=== PATIENT | female | born 1970 ===

== ENCOUNTER 2018-03-14 00:15 | Emergency (ER) | payer SELFPAY ==
[2018-03-14 00:24] VITALS: BP 159/77; PULSE 81; TEMP 98.5; O2SAT 99
[2018-03-14] MEDS ORDERED: Tetracaine 0.5% Ophth (OR ONLY) ONE (00:38)
[2018-03-14] MEDS ORDERED: Fluorescein 1 mg Ophthalmic Strip ONE (00:38)
[2018-03-14] MEDS ORDERED: Fluorescein 1 mg Ophthalmic Strip OD ONE (00:47)
--- NOTE | 2018-03-14 00:50 | C.PDOC ---
History Of Present Illness 47 year old female presents to the ED complaining of foreign body sensation in her right eye. 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 She tried washing it out but the discomfort persists. Denies changes in vision, discharge, or headache. She denies any other trauma/ injuries. Time Seen by Provider: 03/14/18 00:40 Chief Complaint (Nursing): Eye Problem History Per: Patient History/Exam Limitations: no limitations Onset/Duration Of Symptoms: Mins Current Symptoms Are (Timing): Still Present Associated Symptoms: FB Sensation Past Medical History Reviewed: Historical Data, Nursing Documentation, Vital Signs Vital Signs: Last Vital Signs Temp 98.5 F 03/14/18 00:22 Pulse 81 03/14/18 00:22 Resp 20 03/14/18 00:55 BP 159/77 H 03/14/18 00:22 Pulse Ox 99 03/14/18 02:14 - Medical History PMH: No Chronic Diseases Surgical History: Cholecystectomy Family History: States: No Known Family Hx - Social History Hx Alcohol Use: Yes Hx Substance Use: No Review Of Systems Except As Marked, All Systems Reviewed And Found Negative. Eyes: Positive for: Other (Foreign body sensation in right eye) Physical Exam - Physical Exam Appears: Non-toxic, No Acute Distress Skin: Normal Color, Warm, Dry Head: Atraumatic, Normacephalic Eye(s): bilateral: PERRL, EOMI, right: Other (Mild injection, (+) fluorsceine uptake), left: Normal Inspection Ear(s): Bilateral: Normal Nose: Normal Oral Mucosa: Moist Throat: Normal Neck: Normal ROM, Supple Chest: Symmetrical Respiratory: No Accessory Muscle Use, Other (Speaking full sentences) Extremity: Bilateral: Atraumatic, Normal Color And Temperature, Normal ROM Neurological/Psych: Oriented x3, Normal Speech Gait: Steady ED Course And Treatment O2 Sat by Pulse Oximetry: 99 (RA) Pulse Ox Interpretation: Normal Progress Note: Right eye was irrigated. Patient reports improvement. No change in vision. No eye pain. Patient instructed to follow up with Ship Laborer for further evaluation in 1-2 days. Disposition - Disposition Referrals: Que Mackey [Staff Provider] - Disposition: HOME/ ROUTINE Disposition Time: 00:48 Condition: GOOD Additional Instructions: Follow up with eye doctor in 1-2 days. Return to ER if symptoms persist or worsen. Prescriptions: Tobramycin [Tobrex] 2 drop OU Q4 5 Days drops Instructions: Corneal Abrasion (DC) Forms: [employer] (Pashto) - Clinical Impression Clinical Impression: Corneal abrasion - PA / MILLWRIGHT APPRENTICE / Resident Statement MD/DO has reviewed & agrees with the documentation as recorded. - Scribe Statement The provider has reviewed the documentation as recorded by the Scribe Roya Myles All medical record entries made by the Scribe were at my direction and personally dictated by me. I have reviewed the chart and agree that the record accurately reflects my personal performance of the history, physical exam, medical decision making, and the department course for this patient. I have also personally directed, reviewed, and agree with the discharge instructions and disposition.
[2018-03-14 00:56] VITALS: RESP 20
== END 2018-03-14 00:55 | disposition home or self-care (01) ==
LOC: C.ER 00:15
DX: S05.01XA Injury of conjunctiva and corneal abrasion without foreign body, right eye, initial encounter (principal); W22.8XXA Striking against or struck by other objects, initial encounter; Y93.E9 Activity, other interior property and clothing maintenance; Y92.002 Bathroom of unspecified non-institutional (private) residence as the place of occurrence of the external cause

== ENCOUNTER 2018-09-17 16:50 | Emergency (ER) | payer OTHER ==
[2018-09-17 17:04] VITALS: RESP 18
--- NOTE | 2018-09-17 17:41 | C.PDOC ---
History Of Present Illness 48 years old female presents to ED for complaints of left posterior knee and calf pain that began 5 months ago. Patient describes pain worsens when walking. Denies trauma, injuries, fever, or any other physical complaints. Time Seen by Provider: 09/17/18 17:13 Chief Complaint (Nursing): Lower Extremity Problem/Injury History Per: Patient History/Exam Limitations: no limitations Onset/Duration Of Symptoms: Days Current Symptoms Are (Timing): Still Present Recent travel outside of the [place]: No Past Medical History Reviewed: Historical Data, Nursing Documentation, Vital Signs Vital Signs: Last Vital Signs Temp 98.3 F 09/17/18 17:01 Pulse 86 09/17/18 17:01 Resp 18 09/17/18 17:01 BP 149/84 09/17/18 17:01 Pulse Ox 97 09/17/18 17:01 - Medical History PMH: No Chronic Diseases Surgical History: Cholecystectomy Family History: States: No Known Family Hx - Social History Hx Alcohol Use: Yes Hx Substance Use: No Review Of Systems Except As Marked, All Systems Reviewed And Found Negative. Constitutional: Negative for: Fever, Chills Gastrointestinal: Negative for: Nausea, Vomiting, Abdominal Pain, Diarrhea Musculoskeletal: Positive for: Other (Posterior knee pain and calf pain ) Skin: Negative for: Rash Neurological: Negative for: Weakness, Numbness Physical Exam - Physical Exam Appears: Non-toxic, No Acute Distress Skin: Normal Color, Warm, Dry, No Rash Eye(s): bilateral: Normal Inspection, PERRL, EOMI Oral Mucosa: Moist Neck: Supple Chest: Symmetrical, No Tenderness Cardiovascular: Rhythm Regular, No Murmur Respiratory: Normal Breath Sounds, No Rales, No Rhonchi, No Wheezing Extremity: Normal ROM, Tenderness (Posterior knee ), Calf Tenderness, No Deformity, No Swelling Extremity: Bilateral: Normal ROM Pulses: Left Radial: Normal, Right Radial: Normal Neurological/Psych: Oriented x3, Normal Speech, Other (No focal deficits) Gait: Steady ED Course And Treatment O2 Sat by Pulse Oximetry: 97 (RA) Pulse Ox Interpretation: Normal Medical Decision Making Medical Decision Making: Plan: * D-Dimer D dimer was (+). Patient was given a dose of lovenox for possible DVT. Was instructed to return tomorrow without fail for Doppler. Disposition - Disposition Referrals: [facility] [Outside] Disposition: HOME/ ROUTINE Disposition Time: 18:34 Condition: STABLE Additional Instructions: RETURN TOMORROW WITHOUT FAIL TO THE ER FOR VENOUS DOPPLER. COME TO THE ED BEFORE 3PM. Instructions: Deep Vein Thrombosis (Blood Clots in the Legs), Dependent Edema (DC) Forms: [employer] (Turkish) - Clinical Impression Clinical Impression: Deep venous thrombosis of lower extremity - PA / MATERIAL FLOW ENGINEER / Resident Statement MD/DO has reviewed & agrees with the documentation as recorded. - Scribe Statement The provider has reviewed the documentation as recorded by the Scribmarcus Sandoval All medical record entries made by the Shahrzad were at my direction and personally dictated by me. I have reviewed the chart and agree that the record accurately reflects my personal performance of the history, physical exam, medical decision making, and the department course for this patient. I have also personally directed, reviewed, and agree with the discharge instructions and disposition.
[2018-09-17] MEDS ORDERED: Enoxaparin 40 mg Syringe SC STA (18:27)
[2018-09-17] MEDS ORDERED: Enoxaparin 80 mg Syringe ONE (18:42)
[2018-09-17 19:03] VITALS: BP 135/82; PULSE 82; TEMP 98.2; O2SAT 100
== END 2018-09-17 19:03 | disposition home or self-care (01) ==
LOC: C.ER 16:50
DX: I82.409 Acute embolism and thrombosis of unspecified deep veins of unspecified lower extremity (principal)
CPT/HCPCS: 85378; 96372; 99283; J1650

== ENCOUNTER 2018-09-18 08:03 | Emergency (ER) | payer OTHER ==
[2018-09-18 08:10] VITALS: BP 135/73; PULSE 84; RESP 20; TEMP 98.1; O2SAT 99
--- NOTE | 2018-09-18 08:40 | C.PDOC ---
History Of Present Illness 48 y/o female c/o pain for 5 months to back of left knee, worse in last few days. no cp or sob. +smoker. pt seen in ED yesterday, had elevated d-dimer, was given a shot of lovenox and advised to return to ed for venous doppler. Time Seen by Provider: 09/18/18 08:15 Chief Complaint (Nursing): Lower Extremity Problem/Injury History Per: Patient History/Exam Limitations: no limitations Onset/Duration Of Symptoms: Days Current Symptoms Are (Timing): Still Present Severity: Moderate Past Medical History Reviewed: Historical Data, Nursing Documentation, Vital Signs Vital Signs: Last Vital Signs Temp 98.1 F 09/18/18 08:06 Pulse 84 09/18/18 08:06 Resp 20 09/18/18 08:06 BP 135/73 09/18/18 08:06 Pulse Ox 99 09/18/18 08:06 Surgical History: Cholecystectomy Family History: States: No Known Family Hx - Social History Hx Alcohol Use: Yes Hx Substance Use: No - Immunization History Hx Tetanus Toxoid Vaccination: No Hx Influenza Vaccination: Yes Hx Pneumococcal Vaccination: No Review Of Systems Constitutional: Negative for: Fever, Chills Respiratory: Negative for: Cough, Shortness of Breath Musculoskeletal: Positive for: Other (left posterior knee pain) Skin: Negative for: Rash Neurological: Negative for: Weakness, Numbness Physical Exam - Physical Exam Appears: Non-toxic, No Acute Distress Skin: Normal Color, Warm, Dry Head: Atraumatic, Normacephalic Eye(s): bilateral: Normal Inspection Neck: Supple Chest: Symmetrical Cardiovascular: Rhythm Regular Respiratory: Normal Breath Sounds, No Rales, No Rhonchi, No Wheezing Extremity: Normal ROM (bilateral lower extrremities), No Calf Tenderness, Other (some fullness in left popliteal fossa, no warmth or erythema to bilateral lower extremities) Pulses: Left Dorsalis Pedis: Normal, Right Dorsalis Pedis: Normal Neurological/Psych: Oriented x3, Normal Speech, Normal Cognition ED Course And Treatment O2 Sat by Pulse Oximetry: 99 (RA) Pulse Ox Interpretation: Normal Medical Decision Making Medical Decision Making: pt with negative venous doppler for dvt. will d/c home with pmd and ortho f/u. continue nsaids. referred to ortho, given info about bakers cyst, pt understands no definitive diagnosis of such/ Disposition Counseled Patient/Family Regarding: Studies Performed, Diagnosis, Need For Followup, Smoking Cessation - Disposition Referrals: Tricia Garza [Staff Provider] - Abhishek Reyes MD [Staff Provider] - Disposition: HOME/ ROUTINE Disposition Time: 09:54 Condition: GOOD Additional Instructions: Please follow up with primary doctor and orthopedist. Continue taking ibuprofen if needed for pain- take smallest dose possible and with food. You can try an quan bandage, cold compresses. I printed information about Banks's cyst for your knowledge, but that is not a definite diagnosis at this time. Instructions: Banks's Cyst (DC), Chronic Knee Pain (DC) Forms: [employer] (Lao), General Discharge Instructions - Clinical Impression Clinical Impression: Knee pain, left - PA / RAILROAD TRACK REPAIR SUPERVISOR / Resident Statement MD/DO has reviewed & agrees with the documentation as recorded. - Scribe Statement The provider has reviewed the documentation as recorded by the Shahrzad Zambrano Provider Attestation All medical record entries made by the Scribe were at my direction and personally dictated by me. I have reviewed the chart and agree that the record accurately reflects my personal performance of the history, physical exam, medical decision making, and the department course for this patient. I have also personally directed, reviewed, and agree with the discharge instructions and disposition.
--- NOTE | 2018-09-19 09:01 | VASCLAB ---
Date of service: 09/18/2018 PROCEDURE: Left Lower Extremity Venous Duplex Exam. HISTORY: left posterior knee and calf pain PRIORS: None. TECHNIQUE: Left common femoral, femoral, popliteal and posterior tibial, peroneal and great saphenous veins were evaluated. Flow was assessed with color Doppler, compressibility, assessment of phasic flow and augmentation response. Report prepared by INDY Damon FINDINGS: LEFT: 1. Common Femoral Vein: 1.1. Compressibility - Fully compressible: Thrombus - None : Flow - Phasic: Augmentation -Normal: Reflux - None. 2. Femoral Vein: 2.1. Compressibility - Fully compressible: Thrombus - None: Flow - Phasic: Augmentation -Normal: Reflux - None. 3. Popliteal Vein: 3.1. Compressibility - Fully compressible: Thrombus - None: Flow - Phasic: Augmentation -Normal: Reflux - None. 4. Posterior Tibial Vein: 4.1. Compressibility - Fully compressible: Thrombus - None: Flow - Phasic: Augmentation -Normal: Reflux - None. 5. Peroneal Vein: 5.1. Compressibility - Fully compressible: Thrombus - None: Flow - Phasic: Augmentation -Normal: Reflux - None. 6. Great Saphenous Vein: 6.1. Compressibility - Fully compressible: Thrombus - None: Flow - Phasic: Augmentation - Normal: Reflux - None. OTHER FINDINGS: IMPRESSION: No evidence of deep or superficial vein thrombosis of the left lower extremity with excellent venous flow. Normal valve function noted of the left side. Normal venous flow noted in the right common femoral vein.
== END 2018-09-18 10:12 | disposition home or self-care (01) ==
LOC: C.ER 08:03
DX: M25.562 Pain in left knee (principal)

== ENCOUNTER 2018-11-05 09:35 | Emergency (ER) | payer OTHER ==
[2018-11-05 10:02] VITALS: RESP 20
[2018-11-05] MEDS ORDERED: Sodium Chloride 0.9% 1,000 ML IV ONE (10:17)
[2018-11-05] MEDS ORDERED: Iohexol 240 (50 ml) PO STA (10:17)
[2018-11-05 10:32] LABS: BASO # 0.1 K/uL (0.0-0.2); BASO % 0.6 % (0.0-2.0); EOS # 0.1 K/uL (0.0-0.7); EOS % 0.8 % (0.0-4.0); HEMOGLOBIN 14.3 g/dL (11.0-16.0); LYMPH # 3.9 K/uL (1.0-4.3); LYMPH % 47.5 % (20.0-40.0); MEAN CELL VOLUME 89.3 fL (81.0-99.0); MEAN CORPUSCULAR HEMOGLOBIN 30.3 pg (27.0-31.0); MEAN CORPUSCULAR HGB CONC 33.9 g/dL (33.0-37.0); MEAN PLATELET VOLUME 9.8 fL (7.2-11.7); MONO # 0.6 K/uL (0.0-0.8); MONO % 7.4 % (0.0-10.0); NEUT # 3.6 K/uL (1.8-7.0); NEUT % 43.7 % (50.0-75.0); RBC 4.72 Mil/uL (3.80-5.20); RED CELL DISTRIBUTION WIDTH 13.6 % (11.5-14.5); WHITE BLOOD COUNT 8.1 K/uL (4.8-10.8)
--- NOTE | 2018-11-05 10:36 | C.PDOC ---
History Of Present Illness 48-year-old female presents to the emergency department with complaints of abdominal pain and itching since Tuesday11-01-18. Patient also reports 2 to 3 episodes of diarrhea daily. Patient reports diffuse lower abdominal pain this morning with nausea. Patient denies vomiting, fever, and urinary symptoms. Of note patient reports drinking beer daily, but hasnt drank for the last four days. Time Seen by Provider: 11/05/18 09:55 Chief Complaint (Nursing): Abdominal Pain History Per: Patient History/Exam Limitations: no limitations Onset/Duration Of Symptoms: Days (4) Current Symptoms Are (Timing): Still Present Location Of Pain/Discomfort: Diffuse Associated Symptoms: Nausea, Diarrhea. denies: Fever, Vomiting, Urinary Sympt oms Past Medical History Reviewed: Historical Data, Nursing Documentation, Vital Signs Vital Signs: Last Vital Signs Temp 97.4 F L 11/05/18 10:00 Pulse 67 11/05/18 10:00 Resp 20 11/05/18 10:00 BP 109/56 L 11/05/18 10:00 Pulse Ox 99 11/05/18 10:00 - Medical History PMH: No Chronic Diseases Surgical History: Cholecystectomy Family History: States: No Known Family Hx - Social History Hx Alcohol Use: Yes Hx Substance Use: No - Immunization History Hx Tetanus Toxoid Vaccination: No Hx Influenza Vaccination: Yes Hx Pneumococcal Vaccination: No Review Of Systems Constitutional: Negative for: Fever, Chills Gastrointestinal: Positive for: Nausea, Abdominal Pain, Diarrhea. Negative for: Vomiting Genitourinary: Negative for: Dysuria, Frequency, Incontinence Physical Exam - Physical Exam Appears: Non-toxic, No Acute Distress Skin: Normal Color, Warm, Dry Head: Atraumatic, Normacephalic Eye(s): bilateral: Normal Inspection, PERRL, EOMI Oral Mucosa: Dry Lips: Other (chapped) Throat: Normal, No Erythema Neck: Normal, Supple Chest: Symmetrical, No Tenderness Cardiovascular: Rhythm Regular, No Murmur Respiratory: Normal Breath Sounds, No Rales, No Rhonchi, No Wheezing Gastrointestinal/Abdominal: Soft, Tenderness (diffuse lower abdominal tenderness), No Guarding, No Rebound Neurological/Psych: Oriented x3, Normal Speech, Normal Cognition ED Course And Treatment - Laboratory Results Result Diagrams: 11/05/18 10:29 11/05/18 10:29 O2 Sat by Pulse Oximetry: 99 (RA) Pulse Ox Interpretation: Normal - CT Scan/US CT Abdomen and Pelvis Other Rad Studies (CT/US): Read By Radiologist, Radiology Report Reviewed CT/US Interpretation: IMPRESSION: Mildly dilated small bowel loops and [id number] gastric and proximal small bowel wall thickening noted suspicious for gastroenteritis. 3.8 centimeters cyst at the right adnexa. Focal 3.5 centimeter hypodensity in the uterine body or distal portion of the endometrium may represent degenerated fibroid. If clinically warranted further assessment of the pelvis by ultrasound may be obtained. No evidence of diverticulitis. Medical Decision Making Medical Decision Making: Plan: Chemistry Hematology NaCl IV Fluids Zofran 4mg IVP POC Urine Urine Culture Urinalysis 1430 ct reviewed, consistent with gastroenteritis. pt tolerating po fluids, in no pain at this time, abdomen soft, nd, nt. pt resting comfortably. will give po potassium one dose in ed. d/c home with supportive care and pmd f/u. stool culture. . Disposition Counseled Patient/Family Regarding: Studies Performed, Diagnosis, Need For Followup, Rx Given - Disposition Disposition: HOME/ ROUTINE Disposition Time: 15:36 Condition: IMPROVED Additional Instructions: Follow up with Dr Rasmussen in 1-2 days. If diarrhea persists. bring in a stool sample to be sent for testing. Eat banana, plain white rice, increased fluids, toast, potato. Follow up with special education curriculum specialist, you have a right ovarian cyst. Return to ER for any worse symptoms. Tylenol or mOtrin for pain if needed. Instructions: Ovarian Cyst (DC), Viral Gastroenteritis, Adult (DC) Forms: [employer] (Icelandic), General Discharge Instructions - Clinical Impression Clinical Impression: Gastroenteritis, Ovarian cyst - PA / DRAINAGE INSPECTOR / Resident Statement MD/DO has reviewed & agrees with the documentation as recorded. - Scribe Statement The provider has reviewed the documentation as recorded by the Scribe (Tristan Angel) All medical record entries made by the Scribe were at my direction and personally dictated by me. I have reviewed the chart and agree that the record accurately reflects my personal performance of the history, physical exam, medical decision making, and the department course for this patient. I have also personally directed, reviewed, and agree with the discharge instructions and disposition.
[2018-11-05 10:44] LABS: ALB/GLOB RATIO 1.4 (1.0-2.1); ALBUMIN 4.1 g/dL (3.5-5.0); ALT/SGPT 97 U/L (9-52); AST/SGOT 55 U/L (14-36); BLOOD UREA NITROGEN 13 mg/dL (7-17); CALCIUM 8.9 mg/dl (8.6-10.4); GFR NON-AFRICAN AMERICAN > 60; LIPASE 47 U/L (23-300)
[2018-11-05] MEDS ORDERED: Iohexol 240 (50 ml) ONE ×2 (10:51→11:27)
[2018-11-05] MEDS ORDERED: Sodium Chloride 0.9% 1,000 ML ONE (10:52)
[2018-11-05 11:03] LABS: SQUAMOUS EPITHIAL 20 /hpf (0-5); URINE BILIRUBIN NEGATIVE (NEGATIVE); URINE BLOOD NEGATIVE (NEGATIVE); URINE CLARITY Hazy (Clear); URINE COLOR Amber (YELLOW); URINE GLUCOSE (UA) NORMAL (Normal); URINE LEUKOCYTE ESTERASE NEG Leu/uL (Negative); URINE PROTEIN 1+ mg/dL (NEGATIVE)
[2018-11-05 11:19] LABS: INR 1.2; PROTHROMBIN TIME 12.8 SECONDS (9.7-12.2)
[2018-11-05 11:21] LABS: BARBITURATES, UR NEGATIVE (NEGATIVE); BENZODIAZEPINES, UR NEGATIVE (NEGATIVE); OPIATES, UR NEGATIVE (NEGATIVE); PHENCYCLIDINE, UR NEGATIVE (NEGATIVE)
[2018-11-05] MEDS ORDERED: Iodixanol 320 MG/ML 100 ML BOTTLE IV ONE (12:19)
--- NOTE | 2018-11-05 13:33 | CT ---
Date of service: 11/05/2018 PROCEDURE: CT Abdomen and Pelvis with contrast HISTORY: low ab pain, eval for diverticulitis COMPARISON: None. TECHNIQUE: Contrast dose: 100 mL of Visipaque 320 intravenously. Axial and reformatted coronal and sagittal CT images of the abdomen and pelvis were obtained after IV and oral contrast administration. Radiation dose: Total exam DLP = 1043.38 mGy-cm. This CT exam was performed using one or more of the following dose reduction techniques: Automated exposure control, adjustment of the mA and/or kV according to patient size, and/or use of iterative reconstruction technique. FINDINGS: LOWER THORAX: Unremarkable. LIVER: Mild hepatomegaly and findings suggestive of [id number] hepatic steatosis. GALLBLADDER AND BILE DUCTS: Status post cholecystectomy. PANCREAS: Unremarkable. No gross lesion or ductal dilatation. SPLEEN: Unremarkable. ADRENALS: Unremarkable. No mass. KIDNEYS AND URETERS: Unremarkable. No hydronephrosis. No solid mass. VASCULATURE: Unremarkable. No aortic aneurysm. Small foci of atherosclerotic calcification and mural thickening noted at the distal abdominal aorta P BOWEL: Mild diffuse mucosal thickening noted in the stomach and small bowel loops suggestive of gastroenteritis. No evidence of diverticulitis. No evidence of bowel obstruction. APPENDIX: Normal appendix. PERITONEUM: Unremarkable. No free fluid. No free air. LYMPH NODES: Unremarkable. No enlarged lymph nodes. BLADDER: Unremarkable. REPRODUCTIVE: 3.8 centimeter right adnexal cyst noted. There is focal low attenuation in the uterus may represent fibroid or degenerated fibroid measures 3.5 centimeter in the transverse diameter. BONES: No acute fracture. OTHER FINDINGS: None. IMPRESSION: Mildly dilated small bowel loops and [id number] gastric and proximal small bowel wall thickening noted suspicious for gastroenteritis. 3.8 centimeters cyst at the right adnexa. Focal 3.5 centimeter hypodensity in the uterine body or distal portion of the endometrium may represent degenerated fibroid. If clinically warranted further assessment of the pelvis by ultrasound may be obtained. No evidence of diverticulitis.
[2018-11-05] MEDS ORDERED: Potassium Chloride 20 mEq ER Tab PO STA (14:35)
[2018-11-05] MEDS ORDERED: Potassium Chloride 20 mEq ER Tab PO ONE (14:55)
[2018-11-05 14:58] VITALS: BP 112/51; PULSE 70; TEMP 97.7
[2018-11-05 15:18] VITALS: O2SAT 99
== END 2018-11-05 15:48 | disposition home or self-care (01) ==
LOC: C.ER 09:35
DX: K52.9 Noninfective gastroenteritis and colitis, unspecified (principal); N83.209 Unspecified ovarian cyst, unspecified side; E87.6 Hypokalemia
CPT/HCPCS: 74177; 80053; 80320; 80324; 80345; 80346; 80349; 80353; 80358; 80361; 81001; 81025; 83690; 83992; 85025; 85610; 85730; 87086; 96361; 96374; 96375; 96376; 99285; J1885; J2405; J7030; Q9966; Q9967